=== PATIENT | male | born 1960 | race Native Hawaiian/Other Pacific Islander ===

== ENCOUNTER 2020-09-15 13:06 | Outpatient (CLI) | payer OTHER | END 2020-09-15 20:30 | disposition home or self-care (01) | LOC: RESP 13:06 | PROVIDERS: ATTEND Internal Medicine Sleep Medicine | DX: R06.02 Shortness of breath (principal) ==

== ENCOUNTER 2020-09-27 17:13 | Outpatient (CLI) | payer OTHER ==
[2020-09-27 18:01] LABS: POTASSIUM 4.2 mmol/L (3.6-5.2)
[2020-09-27 18:06] LABS: PLATELET COUNT 216 K/uL (142-355)
== END 2020-09-27 19:57 | disposition home or self-care (01) ==
LOC: LABW 17:13
PROVIDERS: ATTEND Specialist
DX: N20.0 Calculus of kidney (principal)
CPT/HCPCS: 36415; 80048; 85027; 93005

== ENCOUNTER 2020-10-14 23:40 | Observation (INO) | payer OTHER ==
[~2020-10-14] VITALS: Ht 185.4 cm; Wt 128.5 kg
[2020-10-15] VITALS (7 sets, daily range): BP systolic 133–198; BP diastolic 61–94; TEMP 97.4–98.7; Ht 185.4 cm; Wt 128.5 kg
[2020-10-15 00:36] LABS: POTASSIUM 3.9 mmol/L (3.6-5.2)
[2020-10-15 00:50] LABS: PLATELET COUNT 221 K/uL (142-355)
[2020-10-15 00:58] LABS: PARTIAL THROMBOPLASTIN TIME 27.4 SECONDS (24.5-33.6)
--- NOTE | 2020-10-15 02:43 | NUR ---
PATIENT ARRIVED TO FLOOR VIA W/C AT THIS TIME. TAKEN TO ROOM 1119. ORIENTED TO ROOM, SURROUNDINGS AND CALL LIGHT. PATIENT IS ALERT, ORIENTED AND AMBULATORY. 20G TO LEFT HAND PATENT AND INTACT. PATIENT DENIES ANY PAIN OR DISCOMFORT. HE STATES THAT ONCE HE RECEIVED LASIX IN THE ER HE FELT MUCH BETTER. HE DENIES ANY CARDIAC HISTORY. BED LOCKED AND IN LOWEST POSITION. CALL LIGHT WITHIN REACH.
--- NOTE | 2020-10-15 04:30 | NUR ---
LEVAQUIN IVPB HUNG AT THIS TIME. PATIENT DID BEGIN TO C/O ITCHING TO FOREARM. I INFORMED HIM THAT THIS WAS A SIDE EFFECT OF LEVAQUIN, BUT I WOULD MONITOR CLOSELY WHILE HE WAS RECEIVING LEVAQUIN. NO S/S OF ERYTHEMA OR RASH NOTED. HE IS UNSURE IF HE HAS EVER RECEIVED LEVAQUIN BEFORE. CALL LIGHT WITHIN REACH- ENCOURAGED PATIENT TO CALL WITH ANY CHANGES.
--- NOTE | 2020-10-15 06:13 | NUR ---
PATIENT STATES THAT ITCHING DID STOP. LEVAQUIN FINISHED NOW. 20G TO LEFT HAND FLUSHED WITH NS. NO C/O VOICED FROM PATIENT AT THIS TIME. BED LOCKED AND IN LOWEST POSITION. CALL LIGHT WITHIN REACH.
[2020-10-15] MEDS ORDERED: ASPIRIN 8181 MG PO (07:38)
[2020-10-15] MEDS ORDERED: TAMS0.4C PO (07:38)
--- NOTE | 2020-10-15 07:43 | NUR ---
PT REFUSES LABS- MOLD OPERATOR TO ROOM TO EDUCATE PT. PT STATES HE HAS THINGS TO DO AT HOME OR HE COULD BE FISHING ANDN THAT HE DOESN;T WANT TO JUST SIT UP IN THE HOSPITAL ALL DAY. PT AGREES TO LABS/EKG AND TO STAY FOR WORKUP. DR. SCHNEIDER IN TO SEE PT. LAB NOTIFIED TO RETURN TO ROOM TO DRAW LABS.
--- NOTE | 2020-10-15 08:36 | NUR ---
EKG COMPLETED AND GIVEN TO RN.
[2020-10-15 08:52] LABS: PLATELET COUNT 231 K/uL (142-355)
--- NOTE | 2020-10-15 16:32 | NUR ---
EKG COMPLETED AND PUT IN PT CHART.
--- NOTE | 2020-10-15 17:24 | NUR ---
PER DR. SCHNEIDER, REFER PT TO DR. NATARAJAN, HAVE HIM CONTINUE TO TAKE HIS HOME MED METOPROLOL SUCCINATE ER 25MG 1/2 TAB IN EVENING.
--- NOTE | 2020-10-15 17:43 | NUR ---
DC INSTRUCTIONS EXPLAINED TO PT WHO VERBALIZED UNDERSTANDING. PT LEFT FLOOR IN NAD WITH SPOUSE, BELONGINGS SENT HOME WITH PT.
== END 2020-10-15 17:40 | disposition home or self-care (01) ==
LOC: ED 23:40 → MED/SURG 10-15 01:36
PROVIDERS: Hospitalist; ADMIT Internal Medicine Endocrinology, Diabetes & Metabolism; ATTEND Internal Medicine Endocrinology, Diabetes & Metabolism
DX: I24.8 Other forms of acute ischemic heart disease (principal); I10 Essential (primary) hypertension; K21.9 Gastro-esophageal reflux disease without esophagitis; Z72.0 Tobacco use; R06.02 Shortness of breath
CPT/HCPCS: 36415; 80048; 80053; 81000; 82550; 83880; 84484; 85027; 85379; 85610; 85730; 87635; 93005; 94760; 96372; 96374; 99220; 99284; G0378; J1650; J1940; J1956; U0003

== ENCOUNTER 2020-10-15 20:04 | Outpatient (CLI) | payer OTHER ==
[~2020-10-15 20:04] MED LIST: ASPIRIN 8181 MG PO; TAMS0.4C PO
== END 2020-10-15 21:00 | disposition home or self-care (01) ==
LOC: RAD 20:04
PROVIDERS: ATTEND Specialist
DX: N20.0 Calculus of kidney (principal)

== ENCOUNTER 2020-11-26 15:08 | Outpatient (CLI) | payer OTHER | END 2020-11-26 23:59 | disposition home or self-care (01) | LOC: CT 15:08 | PROVIDERS: ATTEND Internal Medicine Sleep Medicine | DX: R91.1 Solitary pulmonary nodule (principal) ==

== ENCOUNTER → 2021-03-20 | Outpatient (CLI) | payer OTHER | LOC: RAD 09:04 | PROVIDERS: ATTEND Specialist | DX: N20.0 Calculus of kidney (principal) ==

== ENCOUNTER 2021-03-28 08:12 | Outpatient (CLI) | payer OTHER | END 2021-03-28 20:03 | disposition home or self-care (01) | LOC: RESP 08:12 | PROVIDERS: ATTEND Specialist | DX: N20.0 Calculus of kidney (principal) | CPT/HCPCS: 93005 ==

== ENCOUNTER 2021-05-31 15:59 | Outpatient (CLI) | payer OTHER | END 2021-05-31 18:55 | disposition home or self-care (01) | LOC: CT 15:59 | PROVIDERS: ATTEND Internal Medicine Sleep Medicine | DX: R91.1 Solitary pulmonary nodule (principal) ==

== ENCOUNTER 2022-06-09 08:25 | Outpatient (CLI) | payer OTHER | END 2022-06-09 23:34 | disposition home or self-care (01) | LOC: CT 08:25 | PROVIDERS: ATTEND Internal Medicine Sleep Medicine | DX: R91.8 Other nonspecific abnormal finding of lung field (principal) ==

== ENCOUNTER 2022-08-26 07:25 | Outpatient (CLI) | payer OTHER ==
[2022-08-26 08:22] LABS: PLATELET COUNT 221 K/uL (142-355)
[2022-08-26 08:40] LABS: POTASSIUM 4.4 mmol/L (3.6-5.2)
== END 2022-08-26 19:37 | disposition home or self-care (01) ==
LOC: LABW 07:25
PROVIDERS: ATTEND Internal Medicine Endocrinology, Diabetes & Metabolism
DX: E55.9 Vitamin D deficiency, unspecified (principal); R53.83 Other fatigue; E29.1 Testicular hypofunction; E66.9 Obesity, unspecified; Z86.39 Personal history of other endocrine, nutritional and metabolic disease; I25.10 Atherosclerotic heart disease of native coronary artery without angina pectoris; N40.0 Benign prostatic hyperplasia without lower urinary tract symptoms; Z87.438 Personal history of other diseases of male genital organs; Z82.61 Family history of arthritis; Z84.1 Family history of disorders of kidney and ureter; Z82.49 Family history of ischemic heart disease and other diseases of the circulatory system; Z83.49 Family history of other endocrine, nutritional and metabolic diseases; Z09 Encounter for follow-up examination after completed treatment for conditions other than malignant neoplasm
CPT/HCPCS: 36415; 80053; 80061; 82306; 82607; 82747; 83036; 84154; 84402; 84403; 84439; 84443; 85027